=== PATIENT | male | born 1990 | race African-American/Black ===

== ENCOUNTER 2021-04-26 15:33 | Emergency (ER) | payer OTHER ==
[~2021-04-26] VITALS: Ht 175.3 cm; Wt 63.5 kg
--- NOTE | 2021-04-26 16:47 | EKG ---
[place] [address] ELECTROCARDIOGRAM REPORT Name: JAMIN WILSON Room: [facility]#: [id number] Admission: 04/26/21 Attend Phys: Discharge: Date of : 89 Date of Service: 04/26/217 Report #: [id number] THIS REPORT FOR: //name// [facility] ED Test Date: 2021-04-26 Test Time: 16:37:55 Pat Name: JAMIN WILSON Department: Room: Gender: Internal Medicine Nurse Practitioner: : 1990 Requested By: Andriy Del Castillo Order Number: [id number] MD: Adan Jung Measurements Intervals [place] Rate: 61 P: 9 VT: 215 QRS: 44 QRSD: 87 T: 46 QT: 442 QTc: 446 Interpretive Statements Sinus rhythm Prolonged VT interval No previous ECG available for comparison Electronically Signed On 04-26-2021 16:47:29 CDT by Adan Jung [email or web address] <ELECTRONICALLY SIGNED> By: Adan Jung MD, [facility] 04/26/21 [id number] 36 Adan Jung MD, FACC /EPI
[2021-04-26 17:44] VITALS: BP 131/70
== END 2021-04-26 17:43 | disposition home or self-care (01) ==
LOC: M.ERS 15:33
DX: U07.1 COVID-19 (principal); R55 Syncope and collapse; E86.0 Dehydration